=== PATIENT | female | born 1990 | race Hispanic/Latino ===

== ENCOUNTER 2020-12-18 16:44 | Observation (INO) | payer MEDICAID, OTHER ==
[~2020-12-18] VITALS: Ht 167.6 cm; Wt 110.2 kg
[2020-12-18] MEDS ORDERED: LACTATED RINGERS 1000ML IV PRN (17:30)
[2020-12-18] MEDS ORDERED: ALBUTEROL 0.083% 2.5 MG/3 ML INH IH ONE ×2 (17:32→22:28)
[2020-12-18 17:34] LABS: BASOPHILS % (AUTO) 0.3 % (0.0-5.0); EOSINOPHILS % (AUTO) 7.8 % (0.0-8.0); HEMATOCRIT 40.3 % (36-48); LYMPHOCYTES % (AUTO) 20.3 % (21.0-51.0); MEAN CORPUSCULAR HEMOGLOBIN 25.1 pg (27.0-33.0); MONOCYTES % (AUTO) 10.8 % (3.0-13.0); NEUTROPHILS % (AUTO) 60.3 % (40.0-77.0); PLATELET COUNT (AUTO) 440 K/uL (130-400); RED CELL DISTRIBUTION WIDTH 14.3 % (11.0-15.5); WHITE BLOOD COUNT (AUTO) 8.8 K/uL (4.8-10.8)
[2020-12-18 17:35] LABS: APPEARANCE,URINE Clear (CLEAR); BILIRUBIN,URINE Negative (NEGATIVE); COLOR,URINE Dark Yellow (YELLOW); GLUCOSE, URINE (UA) >=1000 mg/dL (NEGATIVE); KETONES,URINE Trace mg/dL (NEGATIVE); LEUKOCYTE ESTERASE ,URINE Negative (NEGATIVE); NITRATE,URINE Negative (NEGATIVE); OCCULT BLOOD,URINE Nonhemolyzed Trace (NEGATIVE); PH,URINE 6.5 (5.0-8.0); PROTEIN,URINE Trace mg/dL (NEGATIVE)
[2020-12-18 17:42] LABS: AMPHET/METH SCREEN,URINE NEGATIVE (NEGATIVE); BARBITURATE SCREEN, URINE NEGATIVE (NEGATIVE); BENZODIAZEPINES SCREEN,URINE NEGATIVE (NEGATIVE); CANNABINOID SCREEN,URINE NEGATIVE (NEGATIVE); COCAINE SCREEN,URINE NEGATIVE (NEGATIVE); OPIATE SCREEN,URINE NEGATIVE (NEGATIVE); PHENCYCLIDINE SCREEN,URINE NEGATIVE (NEGATIVE)
[2020-12-18 17:57] LABS: CREATININE 0.7 mg/dL (0.5-1.5)
[2020-12-18] MEDS ORDERED: GUAIFENESIN-DM 200/20 MG 10 ML PO PRN ×2 (18:00)
[2020-12-18] MEDS ORDERED: ACETAMINOPHEN 500 MG TABLET PO ONE (18:00)
[2020-12-18 18:01] LABS: BACTERIA,URINE Rare /HPF (None Seen); MUCUS,URINE Few LPF (None Seen); SQUAMOUS EPITHELIAL CELL,UR Few /HPF (0-2); WBC,URINE 0-1 /HPF (0-1)
[2020-12-18 18:02] LABS: ALBUMIN 2.4 g/dL (3.5-5.0); BILIRUBIN,TOTAL 0.3 mg/dL (0.2-1.0); INR 0.95 (0.85-1.15); PROTHROMBIN TIME 10.4 SEC (9.6-11.6); TOTAL PROTEIN, SERUM 8.1 g/dL (6.0-8.3); URIC ACID 3.5 mg/dL (2.6-7.2)
[2020-12-18 18:03] LABS: PARTIAL THROMBOPLASTIN TIME 27.7 SEC (26.3-35.5)
[2020-12-18] MEDS ORDERED: CEFTRIAXONE 1G VIAL IVP SCH (22:00)
[2020-12-18] MEDS: ALBUTEROL 0.083% 2.5 MG/3 ML INH IH SCH (22:00)
[2020-12-18] MEDS ORDERED: 0.9% NACL 250ML IVPB SCH (22:00)
[2020-12-18] MEDS ORDERED: AZITHROMYCIN 500MG VIAL IVPB SCH (22:00)
[2020-12-18] MEDS ORDERED: AZITHROMYCIN 500MG+NS 250ML 250 ML IV ONE (22:52)
[2020-12-18] MEDS ORDERED: ACETAMINOPHEN 500 MG TABLET ONE (23:34)
[2020-12-19] MEDS ORDERED: ACETAMINOPHEN 500 MG TABLET PO PRN (02:00)
[2020-12-19] MEDS: ALBUTEROL 0.083% 2.5 MG/3 ML INH IH SCH ×3 (02:11→09:52)
[2020-12-19] MEDS ORDERED: DIPHENHYDRAMINE HCL 25 MG CAPSULE PO SCH (09:00)
[2020-12-19 09:03] VITALS: BP 113/71
[2020-12-19] MEDS ORDERED: ALBUTEROL 0.083% 2.5 MG/3 ML INH IH PRN (14:00)
== END 2020-12-19 10:00 | disposition home or self-care (01) ==
LOC: EDH 16:44 → LDH 17:19
PROVIDERS: ADMIT Specialist; ATTEND Specialist
DX: O99.513 Diseases of the respiratory system complicating pregnancy, third trimester (principal); J45.901 Unspecified asthma with (acute) exacerbation; Z20.822 Contact with and (suspected) exposure to COVID-19; O98.813 Other maternal infectious and parasitic diseases complicating pregnancy, third trimester; A74.9 Chlamydial infection, unspecified; O26.893 Other specified pregnancy related conditions, third trimester; R94.5 Abnormal results of liver function studies; Z79.899 Other long term (current) drug therapy; Z87.891 Personal history of nicotine dependence; Z56.0 Unemployment, unspecified; Z3A.37 37 weeks gestation of pregnancy
CPT/HCPCS: 36415; 59025; 71046; 76770; 76805; 76819; 80053; 80305; 81001; 84550; 85025; 85384; 85610; 85730; 87635; 87804 ×2; 94640 ×5; 94664; 96361 ×3; 96365; 96375; A4351; G0378 ×17; J0456; J0696; J7120; Q0163; 96360; J7050